=== PATIENT | female | born 1990 | race American Indian/Alaskan Native ===

== ENCOUNTER 2020-11-28 09:30 | Emergency (ER) | payer OTHER ==
[2020-11-28 09:45] VITALS: BP 171/118
--- NOTE | 2020-11-28 10:24 | Emergency Department Report ---
- General Chief complaint: Animal Bite Stated complaint: INSECT BITE Time Seen by Provider: 11/28/20 10:19 Source: patient Mode of arrival: Ambulatory Limitations: No Limitations - History of Present Illness Initial comments: Patient is a 30-year-old female presents emergency room complaints of a possible spider bite that occurred 2 days ago. She did not feel or see anything bite her. Patient states that she is seen a small amount of drainage. She states initially it started as what looked like a small pimple and she opened and drained it on her own manually with her hands. She states that she has noticed a very small amount of drainage. She states that she does have a history of folliculitis. She denies any fever, chills, nausea, vomiting, diarrhea. Past medical history of hypertension and states that she did not take her medication today. She states that she does have her medication at home. She reports that she is on 2 blood pressure medications but is not sure of the names. She is unsure of her last tetanus immunization but states that she does not want a Tdap, discussed with patient the risk associated with declining Tdap, and she continues to decline. Last menstrual cycle 11/09/2020. - Related Data Previous Rx's Medication Instructions Recorded Last Taken Type Albuterol Mdi (or & Nicu Only) 2 puff IH QID PRN #1 inhalation 04/16/18 Unknown Rx [ProAir HFA Inhaler] Amoxicillin/Potassium Clav 1 each PO BID #14 tablet 04/16/18 Unknown Rx [Augmentin 875-125 Tablet] Benzonatate [Tessalon Perles] 100 mg PO Q8HR #10 capsule 04/16/18 Unknown Rx predniSONE [Deltasone] 20 mg PO QDAY #5 tab 04/16/18 Unknown Rx Mupirocin [Bactroban 2% OINT] 1 applic TP TID #1 tube 11/28/20 Unknown Rx Sulfamethoxazole/Trimethoprim 1 each PO BID 7 Days #14 tablet 11/28/20 Unknown Rx [Bactrim DS TAB] Allergies Allergy/AdvReac Type Severity Reaction Status Date / Time No Known Allergies Allergy Verified 04/15/18 23:19 Abscess Boil HPI - HPI Chief Complaint: Animal Bite Stated Complaint: INSECT BITE Time Seen by Provider: 11/28/20 10:19 Home Medications: Previous Rx's Medication Instructions Recorded Last Taken Type Albuterol Mdi (or & Nicu Only) 2 puff IH QID PRN #1 inhalation 04/16/18 Unknown Rx [ProAir HFA Inhaler] Amoxicillin/Potassium Clav 1 each PO BID #14 tablet 04/16/18 Unknown Rx [Augmentin 875-125 Tablet] Benzonatate [Tessalon Perles] 100 mg PO Q8HR #10 capsule 04/16/18 Unknown Rx predniSONE [Deltasone] 20 mg PO QDAY #5 tab 04/16/18 Unknown Rx Mupirocin [Bactroban 2% OINT] 1 applic TP TID #1 tube 11/28/20 Unknown Rx Sulfamethoxazole/Trimethoprim 1 each PO BID 7 Days #14 tablet 11/28/20 Unknown Rx [Bactrim DS TAB] Allergies/Adverse Reactions: Allergies Allergy/AdvReac Type Severity Reaction Status Date / Time No Known Allergies Allergy Verified 04/15/18 23:19 ED Review of Systems ROS: Stated complaint: INSECT BITE Other details as noted in HPI Comment: All other systems reviewed and negative ED Past Medical Hx - Past Medical History Previous Medical History?: Yes Hx Hypertension: Yes - Surgical History Past Surgical History?: No - Social History Smoking Status: Never Smoker - Medications Home Medications: Home Medications Medication Instructions Recorded Confirmed Last Taken Type Albuterol Mdi (or & Nicu Only) 2 puff IH QID PRN #1 inhalation 04/16/18 Unknown Rx [ProAir HFA Inhaler] Amoxicillin/Potassium Clav 1 each PO BID #14 tablet 04/16/18 Unknown Rx [Augmentin 875-125 Tablet] Benzonatate [Tessalon Perles] 100 mg PO Q8HR #10 capsule 04/16/18 Unknown Rx predniSONE [Deltasone] 20 mg PO QDAY #5 tab 04/16/18 Unknown Rx Mupirocin [Bactroban 2% OINT] 1 applic TP TID #1 tube 11/28/20 Unknown Rx Sulfamethoxazole/Trimethoprim 1 each PO BID 7 Days #14 tablet 11/28/20 Unknown Rx [Bactrim DS TAB] ED Physical Exam - General Limitations: No Limitations General appearance: alert, in no apparent distress - Head Head exam: Present: atraumatic, normocephalic - Eye Eye exam: Present: normal appearance - ENT ENT exam: Present: mucous membranes moist - Respiratory Respiratory exam: Absent: respiratory distress, accessory muscle use - Neurological Exam Neurological exam: Present: alert, oriented X3 - Psychiatric Psychiatric exam: Present: normal affect, normal mood - Skin Skin exam: Present: warm, dry, other (small 0.5 cm erythematous papule to the right calf, no drainage, no fluctuance, no necrosis, 7 cm area of surrounding erythema and increased warmth, neurovasculalry intact) ED Course Vital Signs 11/28/20 09:43 Temperature 98.2 F Pulse Rate 85 Respiratory 20 Rate Blood Pressure 171/118 O2 Sat by Pulse 99 Oximetry ED Medical Decision Making - Medical Decision Making Patient is a 30-year-old female presents emergency room complaints of a possible spider bite that occurred 2 days ago. She did not feel or see anything bite her. Patient states that she is seen a small amount of drainage. She states initially it started as what looked like a small pimple and she opened and drained it on her own manually with her hands. She states that she has noticed a very small amount of drainage. She states that she does have a history of folliculitis. She denies any fever, chills, nausea, vomiting, diarrhea. Past medical history of hypertension and states that she did not take her medication today. She states that she does have her medication at home. She reports that she is on 2 blood pressure medications but is not sure of the names. She is unsure of her last tetanus immunization but states that she does not want a Tdap, discussed with patient the risk associated with declining Tdap, and she continues to decline. Last menstrual cycle 11/09/2020. Vitals with elevated blo od pressure secondary to patient not taking her medication, she states that she does have it at home, advised primary care follow-up. On exam:small 0.5 cm erythematous papule to the right calf, no drainage, no fluctuance, no necrosis, 7 cm area of surrounding erythema and increased warmth, neurovasculalry intact. Examination appears consistent with cellulitis. No drainable abscess at this time. No signs of skin necrosis. Patient given prescription for medications. Advised patient Please use medication as prescribed. Follow-up with a primary care doctor for reexamination. Return to emergency room for any new or worsening symptoms including but not limited to worsening swelling, worsening redness, increased drainage, fever, vomiting, etc. Please take your blood pressure medication as prescribed by your primary care doctor. Eat a low-sodium diet. Incorporate 30 to 60 minutes of daily exercise. Keep a blood pressure log and take this to the primary care doctor. Critical care attestation.: If time is entered above; I have spent that time in minutes in the direct care of this critically ill patient, excluding procedure time. ED Disposition Clinical Impression: Elevated blood pressure reading Cellulitis Qualifiers: Site of cellulitis: extremity Site of cellulitis of extremity: lower extremity Laterality: right Qualified Code(s): L03.115 - Cellulitis of right lower limb Disposition: DC- TO HOME OR SELFCARE Is pt being admited?: No Does the pt Need Aspirin: No Condition: Stable Instructions: Cellulitis, Adult Additional Instructions: Please use medication as prescribed. Follow-up with a primary care doctor for reexamination. Return to emergency room for any new or worsening symptoms including but not limited to worsening swelling, worsening redness, increased drainage, fever, vomiting, etc. Please take your blood pressure medication as prescribed by your primary care doctor. Eat a low-sodium diet. Incorporate 30 to 60 minutes of daily exercise. Keep a blood pressure log and take this to the primary care doctor. Prescriptions: Sulfamethoxazole/Trimethoprim [Bactrim DS TAB] 1 each PO BID 7 Days #14 tablet Mupirocin [Bactroban 2% OINT] 1 applic TP TID #1 tube Referrals: [facility] [Provider Group] - 2-3 Days TAMERA WONG MD [Staff Physician] - 2-3 Days Time of Disposition: 10:23 Print Language: SLOVAK
== END 2020-11-28 11:37 | disposition home or self-care (01) ==
LOC: ED 09:30
DX: L03.115 Cellulitis of right lower limb (principal); R03.0 Elevated blood-pressure reading, without diagnosis of hypertension; I10 Essential (primary) hypertension; Z79.899 Other long term (current) drug therapy
CPT/HCPCS: 99281

== ENCOUNTER 2021-03-06 18:57 | Emergency (ER) | payer OTHER ==
[2021-03-06 19:47] VITALS: BP 179/119
--- NOTE | 2021-03-06 20:28 | Emergency Department Report ---
- General Chief Complaint: Upper Respiratory Infection Stated Complaint: COLD/FLU Time Seen by Provider: 03/06/21 20:19 Source: patient Mode of arrival: Ambulatory Limitations: No Limitations - History of Present Illness Initial Comments: 30-year-old female went on a trip to [place] this past weekend for that also got a hair done states that her head and neck was very wet which caused her to come down with a cold just prior to her department from [place] and while down that she was having symptoms issues with coughing nasal congestion coryza myalgia which continued to linger when she returned home she says has a past history of asthma and when she walks sometimes it exacerbates coughing and some shortness of breath she reports no hemoptysis no hematemesis hematochezia, no current fevers chills or sweats overall she states that she feels better but her mom works at the hospital and advised her to come to the emergency room just to get checked out to be safe MD Complaint: cough, rhinorrhea, nasal congestion -: Gradual Severity: mild, moderate Quality: dull Consistency: constant Improves With: nothing Worsens With: nothing Associated Symptoms: denies other symptoms - Related Data Previous Rx's Medication Instructions Recorded Last Taken Type Albuterol Mdi (or & Nicu Only) 2 puff IH QID PRN #1 inhalation 04/16/18 Unknown Rx [ProAir HFA Inhaler] Amoxicillin/Potassium Clav 1 each PO BID #14 tablet 04/16/18 Unknown Rx [Augmentin 875-125 Tablet] Benzonatate [Tessalon Perles] 100 mg PO Q8HR #10 capsule 04/16/18 Unknown Rx predniSONE [Deltasone] 20 mg PO QDAY #5 tab 04/16/18 Unknown Rx Mupirocin [Bactroban 2% OINT] 1 applic TP TID #1 tube 11/28/20 Unknown Rx Sulfamethoxazole/Trimethoprim 1 each PO BID 7 Days #14 tablet 11/28/20 Unknown Rx [Bactrim DS TAB] Albuterol Mdi (or & Nicu Only) 1 puff IH Q4-6H PRN #1 inha 03/06/21 Unknown Rx [ProAir HFA Inhaler] Benzonatate [Tessalon Perles] 100 mg PO Q8HR #20 capsule 03/06/21 Unknown Rx predniSONE [Deltasone] 20 mg PO QDAY #5 tab 03/06/21 Unknown Rx Allergies Allergy/AdvReac Type Severity Reaction Status Date / Time No Known Allergies Allergy Verified 04/15/18 23:19 ED Review of Systems ROS: Stated complaint: COLD/FLU Other details as noted in HPI Comment: All other systems reviewed and negative ED Past Medical Hx - Past Medical History Previous Medical History?: Yes Hx Hypertension: Yes - Surgical History Past Surgical History?: No - Social History Smoking Status: Never Smoker - Medications Home Medications: Home Medications Medication Instructions Recorded Confirmed Last Taken Type Albuterol Mdi (or & Nicu Only) 2 puff IH QID PRN #1 inhalation 04/16/18 Unknown Rx [ProAir HFA Inhaler] Amoxicillin/Potassium Clav 1 each PO BID #14 tablet 04/16/18 Unknown Rx [Augmentin 875-125 Tablet] Benzonatate [Tessalon Perles] 100 mg PO Q8HR #10 capsule 04/16/18 Unknown Rx predniSONE [Deltasone] 20 mg PO QDAY #5 tab 04/16/18 Unknown Rx Mupirocin [Bactroban 2% OINT] 1 applic TP TID #1 tube 11/28/20 Unknown Rx Sulfamethoxazole/Trimethoprim 1 each PO BID 7 Days #14 tablet 11/28/20 Unknown Rx [Bactrim DS TAB] Albuterol Mdi (or & Nicu Only) 1 puff IH Q4-6H PRN #1 inha 03/06/21 Unknown Rx [ProAir HFA Inhaler] Benzonatate [Tessalon Perles] 100 mg PO Q8HR #20 capsule 03/06/21 Unknown Rx predniSONE [Deltasone] 20 mg PO QDAY #5 tab 03/06/21 Unknown Rx ED Physical Exam - General Limitations: No Limitations General appearance: alert, in no apparent distress - Head Head exam: Present: atraumatic, normocephalic - Eye Eye exam: Present: normal appearance - ENT ENT exam: Present: mucous membranes moist - Neck Neck exam: Present: normal inspection - Respiratory Respiratory exam: Present: normal lung sounds bilaterally. Absent: respiratory distress - Cardiovascular Cardiovascular Exam: Present: regular rate, normal rhythm. Absent: systolic murmur, diastolic murmur, rubs, gallop - GI/Abdominal GI/Abdominal exam: Present: soft, normal bowel sounds - Extremities Exam Extremities exam: Present: normal inspection - Back Exam Back exam: Present: normal inspection - Neurological Exam Neurological exam: Present: alert, oriented X3 - Psychiatric Psychiatric exam: Present: normal affect, normal mood - Skin Skin exam: Present: warm, dry, intact, normal color. Absent: rash ED Course Vital Signs 03/06/21 03/06/21 19:45 19:46 Temperature 98.1 F Pulse Rate 89 Respiratory 16 Rate Blood Pressure 179/119 O2 Sat by Pulse 97 Oximetry ED Medical Decision Making - Radiology Data Radiology results: report reviewed Normal chest x-ray - Medical Decision Making This patient presents with acute cough, most consistent with viral syndrom e/bronchitis. Differential diagnosis includes pneumonia/bronchitis/asthma/hyperreactive airway disease/reflux. Presentation not consistent with acute bacterial pneumonia, influenza, asthma, transient airway hyperresponsiveness. Presentation not consistent with chronic causes of cough (including GERD, asthma, postnasal discharge, medication side effect, CHF, lung cancer or mass). Plan: CXR, supportive care, reassess Critical care attestation.: If time is entered above; I have spent that time in minutes in the direct care of this critically ill patient, excluding procedure time. ED Disposition Clinical Impression: Cough, URI (upper respiratory infection), Bronchitis Disposition: 01 HOME / SELF CARE / HOMELESS Is pt being admited?: No Does the pt Need Aspirin: No Condition: Stable Instructions: Chronic Bronchitis (ED) Prescriptions: predniSONE [Deltasone] 20 mg PO QDAY #5 tab Albuterol Mdi (or & Nicu Only) [ProAir HFA Inhaler] 1 puff IH Q4-6H PRN #1 inha PRN Reason: Cough Benzonatate [Tessalon Perles] 100 mg PO Q8HR #20 capsule Referrals: [facility] [Provider Group] - 3-5 Days
--- NOTE | 2021-03-06 20:49 | XRay Report ---
XR chest routine 2V INDICATION / CLINICAL INFORMATION: cough and sob COMPARISON: None available. FINDINGS: SUPPORT DEVICES: None. HEART / MEDIASTINUM: No significant abnormality. LUNGS / PLEURA: Lungs are clear. Costophrenic sulci are sharp. No pneumothorax. ADDITIONAL FINDINGS: No significant additional findings. IMPRESSION: 1. No acute findings. Signer Name: Ankur Bautista MD Signed: 03/06/2021 8:44 PM Workstation Name: [id number]
== END 2021-03-06 22:19 | disposition home or self-care (01) ==
LOC: ED 18:57
DX: J06.9 Acute upper respiratory infection, unspecified (principal); J40 Bronchitis, not specified as acute or chronic; R05 Cough; I10 Essential (primary) hypertension
CPT/HCPCS: 71046; 99283

== ENCOUNTER 2021-04-23 21:29 | Emergency (ER) | payer OTHER ==
[2021-04-23] MEDS ORDERED: ACETAMINOPHEN 325 MG TAB PO ONE (23:05)
[2021-04-23] MEDS ORDERED: methylPREDNISolone Sod Succinate 125 MG/2 ML INJ IV ONE (23:06)
--- NOTE | 2021-04-23 23:07 | Emergency Department Report ---
<DINAH RODRIGUEZ - Last Filed: 04/24/21 02:04> ED General Adult HPI - General Chief complaint: Dyspnea/Respdistress Stated complaint: SARBJIT PUI?: Yes Time Seen by Provider: 04/23/21 22:43 Source: patient Mode of arrival: Ambulatory Limitations: No Limitations - History of Present Illness Initial comments: 31-year-old female with past medical history of hypertension presents to the ER today with complaints of shortness of breath. Patient states that symptoms started around Thursday. Patient states that she has been having associated dry cough and wheezing. She reports soreness to across her chest underneath her breast as well as in her upper back. She states these areas are worse with cough. She states that she did see her primary care doctor today. She was given a breathing treatment in the office after which her wheezing improved. She was given a prescription for ProAir, as well as Medrol Dosepak and Tessalon Perles. Patient states that she was not given any steroid injections in the office. She states that she has not taken any of the Medrol Dosepak since she picked it up today. She states that she has been using the proair but without much improvement of her shortness of breath. She denies any fever, chills, rhinorrhea, nasal congestion or sore throat. She states that she smokes marijuana but not tobacco. She denies any other illicit drug use. She denies any associated calf pain or leg swelling. She denies any GI or symptoms. Patient states that she has never been officially diagnosed with asthma, but she states that she has had similar symptoms in the past. She states that when she spoke to her doctor today, she was told that her symptoms are similar to that of asthma. Patient states that she did not have a COVID-19 test since she has been sick. She is also not got any of the COVID-19 vaccines. MD Complaint: Shortness of breath -: Gradual - Related Data Previous Rx's Medication Instructions Recorded Last Taken Type Albuterol Mdi (or & Nicu Only) 2 puff IH QID PRN #1 inhalation 04/16/18 Unknown Rx [ProAir HFA Inhaler] Benzonatate [Tessalon Perles] 100 mg PO Q8HR #10 capsule 04/16/18 Unknown Rx Azithromycin [Zithromax Z-EVIE] 250 mg PO DAILY #6 tablet 04/24/21 Unknown Rx Cetirizine HCl [Zyrtec 10mg tab] 10 mg PO DAILY #30 tablet 04/24/21 Unknown Rx Allergies Allergy/AdvReac Type Severity Reaction Status Date / Time No Known Allergies Allergy Verified 04/15/18 23:19 ED Review of Systems Comment: All other systems reviewed and negative Constitutional: denies: chills, fever Eyes: denies: eye pain, eye discharge, vision change ENT: denies: ear pain, throat pain, dental pain, hearing loss, epistaxis, congestion Respiratory: cough, shortness of breath, wheezing Cardiovascular: chest pain (across chest underneath breast) Gastrointestinal: denies: abdominal pain, nausea, diarrhea, constipation, hemat emesis, melena, hematochezia Genitourinary: denies: urgency, dysuria, discharge Musculoskeletal: back pain. denies: joint swelling, arthralgia Skin: denies: rash, lesions, change in color, change in hair/nails, pruritus Neurological: denies: headache, weakness, paresthesias, confusion, abnormal gai t, vertigo Psychiatric: denies: anxiety, depression, auditory hallucinations, visual hallucinations, homicidal thoughts, suicidal thoughts Hematological/Lymphatic: denies: easy bleeding, easy bruising, swollen glands ED Past Medical Hx - Past Medical History Previous Medical History?: Yes Hx Hypertension: Yes Hx Asthma: Yes - Surgical History Past Surgical History?: No - Social History Smoking Status: Never Smoker - Medications Home Medications: Home Medications Medication Instructions Recorded Confirmed Last Taken Type Albuterol Mdi (or & Nicu Only) 2 puff IH QID PRN #1 inhalation 04/16/18 Unknown Rx [ProAir HFA Inhaler] Benzonatate [Tessalon Perles] 100 mg PO Q8HR #10 capsule 04/16/18 Unknown Rx Azithromycin [Zithromax Z-EVIE] 250 mg PO DAILY #6 tablet 04/24/21 Unknown Rx Cetirizine HCl [Zyrtec 10mg tab] 10 mg PO DAILY #30 tablet 04/24/21 Unknown Rx ED Physical Exam - General Limitations: No Limitations General appearance: alert, in no apparent distress, obese - Head Head exam: Present: atraumatic, normocephalic, normal inspection - Eye Eye exam: Present: normal appearance, PERRL, EOMI Pupils: Present: normal accommodation - Neck Neck exam: Present: normal inspection, full ROM. Absent: meningismus - Respiratory Respiratory exam: Present: normal lung sounds bilaterally, decreased breath soun ds (mild ). Absent: respiratory distress, wheezes, rales, rhonchi - Cardiovascular Cardiovascular Exam: Present: normal rhythm, tachycardia, normal heart sounds - Extremities Exam Extremities exam: Present: normal inspection, full ROM. Absent: pedal edema, calf tenderness - Neurological Exam Neurological exam: Present: alert, oriented X3, CN II-XII intact, normal gait - Psychiatric Psychiatric exam: Present: normal affect, normal mood - Skin Skin exam: Present: intact ED Medical Decision Making - Lab Data Result diagrams: 04/23/21 22:56 04/23/21 22:56 - EKG Data EKG shows normal: sinus rhythm (118) Rate: tachycardia - EKG Data Interpretation: no acute changes - Radiology Data Radiology results: report reviewed Patient: SAMANTHA GÓMEZ MR#: [id number] : 1990 Acct:[id number] Age/Sex: 31 / F ADM Date: 04/23/21 Loc: ED Attending Dr: Ordering Physician: COTY WADE MD Date of Service: 04/23/21 Procedure(s): XR chest routine 2V Accession Number(s): [id number] cc: COTY WADE MD Fluoro Time In Minutes: CHEST PA AND LATERAL VIEWS INDICATION: sob. COMPARISON: 03/06/2021 FINDINGS: Support devices: None. Heart: Within normal limits. Lungs/Pleura: No consolidation or effusion. There is mild peribronchial cuffing. IMPRESSION: 1. Mild diffuse peribronchial cuffing suggestive of lower airways disease. Signer Name: Guillermo Bravo MD Signed: 04/24/2021 12:06 AM Workstation Name: [id number] Transcribed By: NESTOR Dictated By: Guillermo Bravo MD Electronically Authenticated By: Guillermo Bravo MD Signed Date/Time: 04/24/21 0006 DD/ 0005 TD/TT: - Medical Decision Making 0125: Given patient CBC showed a leukocytosis with a white count of 20,000, patient was also tachycardic on arrival and febrile, sepsis orders were then initiated. Chest x-ray showed Mild diffuse peribronchial cuffing suggestive of lower airways disease. Patient has no complaints of abdominal pain/pelvic pain or UTI symptoms. She has no meningeal signs on exam. Patient states that she has not been on any oral steroids since her last visit here which was in February. Discussed case with Dr Wade, recommend adding a D-dimer and a urinalysis. D-dimer reviewed, it was elevated to 298 and therefore D-dimer was ordered.. Lactic acid was normal. Patient currently resting comfortably. She is not in any acute pain or respiratory distress. She is still receiving IV fluids and antibiotics.. Xopenex neb treatment pending. Repeat vital signs ordered. 0205: The patient's care has been transferred to and accepted by[Kristan Helms]. We discussed: The patient's chief complaints; labs and imaging that have been completed and those that are still pending; any treatment provided and the patient's response to treatment; any significant change in condition; the treatment plan prior to the transfer of care. The accepting provider will follow up on all pending labs and imaging and make any necessary changes to the current impression and/or treatment plan. The accepting physician/midlevel is now responsible for the patient's care and final disposition. ED Disposition Clinical Impression: Shortness of breath Community acquired pneumonia Qualifiers: Laterality: left Lung location: lower lobe of lung Qualified Code(s): J18.9 - Pneumonia, unspecified organism Reactive airway disease Qualifiers: Asthma severity: mild Asthma persistence: intermittent Asthma complication type: with acute exacerbation Qualified Code(s): J45.21 - Mild intermittent asthma with (acute) exacerbation Acute bronchitis Qualifiers: Bronchitis organism: other organism Qualified Code(s): J20.8 - Acute bronchitis due to other specified organisms Disposition: 01 HOME / SELF CARE / HOMELESS Condition: Stable Instructions: Bacterial Pneumonia (ED), Shortness of Breath, Adult, [id number], Asthma, Adult, [id number], Community-Acquired Pneumonia, Adult, [id number], Acute Bronchitis (ED) Additional Instructions: All lab test results were reviewed and showed leukocytosis of 20,000 and slight elevated lactic acid. Chest x-ray showed mild peribronchial cuffing in the lower lobes suggestive of mild lower airways disease. This could be infectious or reactive. Therefore take medications with food, drink plenty of fluids, follow-up with your primary care physician in 3 to 5 days for reevaluation. Return to the ED immediately if symptoms get worse. Prescriptions: Azithromycin [Zithromax Z-EVIE] 250 mg PO DAILY #6 tablet Cetirizine HCl [Zyrtec 10mg tab] 10 mg PO DAILY #30 tablet Referrals: PRIMARY CARE, [Primary Care Provider] - 3-5 Days [facility] [Provider Group] - 3-5 Days Forms: Work/School Release Form(ED) Print Language: BAHAMIAN <KRISTAN HELMS - Last Filed: 04/24/21 05:00> ED Review of Systems ROS: Stated complaint: SARBJIT Other details as noted in HPI ED Course Vital Signs 04/23/21 04/24/21 04/24/21 21:50 00:33 01:33 Temperature 100.3 F H 99.3 F Pulse Rate 131 H 99 H Pulse Rate [ Anterior Bilateral Throughout] Pulse Rate [ Anterior Bilateral Upper Lobe] Respiratory 22 18 19 Rate Respiratory Rate [Anterior Bilateral Throughout] Respiratory Rate [Anterior Bilateral Upper Lobe] Blood Pressure 198/110 Blood Pressure [Left] Blood Pressure 136/80 [Right] O2 Sat by Pulse 96 Oximetry 04/24/21 04/24/21 02:05 02:15 Temperature Pulse Rate 105 H Pulse Rate [ 109 H Anterior Bilateral Throughout] Pulse Rate [ 111 H Anterior Bilateral Upper Lobe] Respiratory 18 Rate Respiratory 18 Rate [Anterior Bilateral Throughout] Respiratory 16 Rate [Anterior Bilateral Upper Lobe] Blood Pressure Blood Pressure 139/80 [Left] Blood Pressure [Right] O2 Sat by Pulse 97 Oximetry ED Medical Decision Making - Lab Data Result diagrams: 04/23/21 22:56 04/23/21 22:56 - Radiology Data [address] [address] Cat Scan Report Signed Patient: SAMANTHA GÓMEZ MR#: [id number] : 1990 Acct:[id number] Age/Sex: 31 / F ADM Date: 04/23/21 Loc: ED Attending Dr: Ordering Physician: DINAH RODRIGUEZ Date of Service: 04/24/21 Procedure(s): CT angio chest Accession Number(s): [id number] cc: DINAH RODRIGUEZ CTA CHEST WITH IV CONTRAST INDICATION: Shortness of breath since Thursday with dry cough and wheezing.. TECHNIQUE: Axial CT images were obtained through the chest after injection of IV contrast. 3 plane MIP reconstructions were produced. All CT scans at this location are performed using CT dose reduction for ALARA by means of automated exposure control. COMPARISON: None available. FINDINGS: Pulmonary Arteries: No pulmonary emboli. Thoracic Aorta: No acute abnormality. Heart: Normal. Lungs: No acute air space or interstitial disease. There is mild peribronchial cuffing in the lower lobes. Pleura: No pleural effusion. No pneumothorax. Lymph Nodes: No significant adenopathy. Additional Findings: None. Upper Abdomen: No acute findings. Skeletal Structures: No significant osseous abnormality. IMPRESSION: 1. No CT evidence for pulmonary embolism. 2. Mild peribronchial cuffing in the lower lobes suggestive of mild lower airways disease. This could be infectious or reactive. Signer Name: Guillermo Bravo MD Signed: 04/24/2021 2:59 AM Workstation Name: [id number] Transcribed By: SW Dictated By: Guillermo Bravo MD Electronically Authenticated By: Guillermo Bravo MD Signed Date/Time: 04/24/21258 DD/ 5 TD/TT: - Medical Decision Making I assumed care of the patient from Ms. Dinah Rodriguez PA-C at shift change. Patient had presented to the ED with shortness of breath, having been treated in the outpatient for suspected bronchitis. Patient was given prescription earlier in the day at an urgent care clinic for Tessalon Perles, Medrol Dosepak and albuterol inhaler but her shortness of breath got worse and she came to the ED for evaluation. In the ED, patient's lab test results showed acute leukocytosis of 20,000 and patient was tachycardic and was worked up as a code sepsis. Patient received 3 L of normal saline IV bolus as well as Zosyn 3.375 g IV x1, Solu-Medrol 125 mg IV x1 in addition to being treated for pain and fever. The chest CTA showed mild peribronchial cuffing in the lower lobes suggestive of mild lower airways disease. This could be infectious or reactive. On reevaluation, patient is hemodynamically stable, tachycardia resolved and fever also resolved. Patient is hemodynamically stable with oxygen saturation of 96 to 98% in room air. Patient is not toxic at this time and is cutting out conversations normally with no shortness of breath. I discussed the patient's findings with the ED attending physician Dr. Eugenio Perdue who agreed the plan of care to discharge the patient home if she is hemo dynamically stable and was discharged home on oral antibiotics for suspected community-acquired pneumonia. Patient was advised to follow-up with her primary care physician in 3 to 5 days for reevaluation or return to the ED immediately if symptoms get worse. Critical care attestation.: If time is entered above; I have spent that time in minutes in the direct care of this critically ill patient, excluding procedure time. ED Disposition Is pt being admited?: No Does the pt Need Aspirin: No Time of Disposition: 04:56
[2021-04-23 23:19] LABS: Basophils # (Auto) 0.1 K/mm3 (0.0-0.1); Basophils % (Auto) 0.6 % (0.0-1.8); Eosinophils # (Auto) 0.9 K/mm3 (0.0-0.4); Eosinophils % (Auto) 4.6 % (0.0-4.3); Hematocrit 45.4 % (30.3-42.9); Hemoglobin 14.7 gm/dl (10.1-14.3); Lymphocytes # (Auto) 2.1 K/mm3 (1.2-5.4); Lymphocytes % (Auto) 10.4 % (13.4-35.0); Mean Corpuscular HGB Conc 32 % (30-34); Mean Corpuscular Volume 89 fl (79-97); Monocytes # (Auto) 1.3 K/mm3 (0.0-0.8); Monocytes % (Auto) 6.3 % (0.0-7.3); Platelet Count 331 K/mm3 (140-440); Red Blood Count 5.09 M/mm3 (3.65-5.03); Red Cell Distribution Width 14.3 % (13.2-15.2)
[2021-04-23 23:36] LABS: BUN/Creatinine Ratio 9; Blood Urea Nitrogen 7 mg/dL (7-17); Calcium 9.7 mg/dL (8.4-10.2); Hemolysis Index 10
[2021-04-23] MEDS ORDERED: SODIUM CHLORIDE 0.9% 1000 ML IV SOLN IV ONE (23:48)
--- NOTE | 2021-04-24 00:10 | XRay Report ---
CHEST PA AND LATERAL VIEWS INDICATION: sob. COMPARISON: 03/06/2021 FINDINGS: Support devices: None. Heart: Within normal limits. Lungs/Pleura: No consolidation or effusion. There is mild peribronchial cuffing. IMPRESSION: 1. Mild diffuse peribronchial cuffing suggestive of lower airways disease. Signer Name: Guillermo Bravo MD Signed: 04/24/2021 12:06 AM Workstation Name: [id number]
[2021-04-24] MEDS: SODIUM CHLORIDE 0.9% 1000 ML 1,000 ML IV ONE ×2 (00:34→03:08)
[2021-04-24] MEDS ORDERED: LEVALBUTEROL 0.63 MG/3 ML NEBU IH ONE (01:07)
[2021-04-24 01:41] LABS: Bacteria,Urine 1+ /HPF (Negative); Bilirubin,Urine NEG (Negative); Blood,Urine LG (Negative); Color,Urine Yellow (Yellow); Mucus,Urine FEW /HPF; Urobilinogen,Urine < 2.0 mg/dL (<2.0)
[2021-04-24 02:16] VITALS: BP 139/80
[2021-04-24] MEDS ORDERED: PIPERACILLIN/TAZOBACTAM 3.375 3.375 GM/50 ML BAG IV ONE (02:19)
[2021-04-24 02:37] LABS: Alanine Aminotransferase 21 units/L (7-56); Albumin 4.5 g/dL (3.9-5)
[2021-04-24] MEDS ORDERED: SODIUM CHLORIDE 0.9% 1000 ML 1,000 ML ONE (03:00)
--- NOTE | 2021-04-24 03:03 | Cat Scan Report ---
CTA CHEST WITH IV CONTRAST INDICATION: Shortness of breath since Thursday with dry cough and wheezing.. TECHNIQUE: Axial CT images were obtained through the chest after injection of IV contrast. 3 plane MIP reconstru ctions were produced. All CT scans at this location are performed using CT dose reduction for ALARA b y means of automated exposure control. COMPARISON: None available. FINDINGS: Pulmonary Arteries: No pulmonary emboli. Thoracic Aorta: No acute abnormality. Heart: Normal. Lungs: No acute air space or interstitial disease. There is mild peribronchial cuffing in the lower l obes. Pleura: No pleural effusion. No pneumothorax. Lymph Nodes: No significant adenopathy. Additional Findings: None. Upper Abdomen: No acute findings. Skeletal Structures: No significant osseous abnormality. IMPRESSION: 1. No CT evidence for pulmonary embolism. 2. Mild peribronchial cuffing in the lower lobes suggestive of mild lower airways disease. This could be infectious or reactive. Signer Name: Guillermo Bravo MD Signed: 04/24/2021 2:59 AM Workstation Name: [id number]
[2021-04-24 03:11] LABS: Bilirubin,Direct < 0.2 mg/dL (0-0.2)
[2021-04-24] MEDS ORDERED: SODIUM CHLORIDE 0.9% 1000 ML 1,000 ML IV ONE (04:05)
--- NOTE | 2021-04-24 08:42 | Electrocardiograph Report ---
[facility] Test Date: 2021-04-23 Test Time: 22:51:39 Pat Name: SAMANTHA GÓMEZ Department: Room: Gender: F Gis Coordinator: [id number] : 1990 Requested By: COTY JACKMAN Order Number: [id number] Reading MD: Milo Rain Measurements Intervals [place] Rate: 118 P: 65 [place]: 120 QRS: 73 QRSD: 75 T: 4 QT: 308 QTc: 432 Interpretive Statements Sinus tachycardia Probable left atrial enlargement nonspecific st-t No previous ECG available for comparison Electronically Signed On 04-24-2021 8:41:45 EDT by Milo Rain
== END 2021-04-24 05:25 | disposition home or self-care (01) ==
LOC: ED 21:29
DX: J45.909 Unspecified asthma, uncomplicated (principal); J18.9 Pneumonia, unspecified organism; R06.02 Shortness of breath; J20.9 Acute bronchitis, unspecified; I10 Essential (primary) hypertension; Z79.899 Other long term (current) drug therapy
CPT/HCPCS: 36415; 71046; 71275; 80048; 80076; 81001; 82140; 83690; 84484; 84702; 85025; 85379; 87040; 87400; 93005; 94640; 96361; 96365; 96375; 99285; J2543; J2930; J7030; Q9967; 94644